=== PATIENT | male | born 1950 | race Caucasian/White ===

== ENCOUNTER 2017-02-27 13:40 | Emergency (ER) | payer OTHER ==
[~2017-02-27] VITALS: Ht 175.3 cm; Wt 87.5 kg
[~2017-02-27 13:40] MED LIST: AMIT10 PO; MOBI7.5T PO; PRIN5TAB PO
[2017-02-27 13:41] VITALS: BP 168/77; PULSE 124; RESP 20; TEMP 97.7; O2SAT 97
[2017-02-27] MEDS ORDERED: MOBI15TA PO (14:05)
[2017-02-27] MEDS ORDERED: HYDR-3535 PO (14:05)
[2017-02-27] MEDS ORDERED: LISI-519 PO (14:05)
[2017-02-27] MEDS ORDERED: CLON0.5T PO (14:05)
--- NOTE | 2017-02-27 14:05 | PD ---
HPI Chief Complaint: Injury Time Seen by Provider: 14:05 Travel History International Travel<30 days: No Contact w/Intl Traveler<30days: No Traveled to known affect area: No History of Present Illness HPI 66-year-old male with history of remote CVA and some left-sided deficit presents to emergency brought in for evaluation left foot pain and swelling. Patient states that he went to get up and his left foot was numb. When he stepped down on it he heard a "pop" and the dorsal her of his foot began to swell. He states there is significant pain in the left foot. Is concerned she may have broken something. He recalls no other injury. He has no other symptoms to report at this time. PFSH Past Medical History Hx Anticoagulant Therapy: No Arthritis: Yes Asthma: No Autoimmune Disease: No Blood Disorders: No Heart Rhythm Problems: Yes Cancer: No Cardiac Catheterization: Yes Cardiovascular Problems: Yes High Cholesterol: Yes Chemotherapy: No Chest Pain: Yes Congestive Heart Failure: No COPD: No Cerebrovascular Accident: Yes Coronary Artery Disease: Yes Diabetes: Yes Diminished Hearing: No Endocrine: Yes GERD: No Glaucoma: No Genitourinary: No Headaches: Yes Hepatitis: No Hiatal Hernia: No Hypertension: Yes Immune Disorder: No Kidney Stones: No Musculoskeletal: Yes ( L SIDED WEAKNESS) Neurologic: No Psychiatric: No Reproductive: No Respiratory: No Migraines: Yes Myocardial Infarction: Yes (STATES ~ 10 YEARS PRIOR) Radiation Therapy: No Renal Failure: No Seizures: No Sickle Cell Disease: No Sleep Apnea: No Thyroid Disease: No Ulcer: No Past Surgical History Abdominal Surgery: No AICD: No Arteriovenous Shunt: No Cardiac Surgery: No Coronary Artery Bypass Graft: No Ear Surgery: No Endocrine Surgery: No Eye Surgery: No Genitourinary Surgery: No Gynecologic Surgery: No Insulin Pump: No Joint Replacement: No Oral Surgery: No Pacemaker: No Thoracic Surgery: No Other Surgery: Yes (VARICOCELE) Social History Alcohol Use: No Tobacco Use: No Substance Use: No Allergies-Medications (Allergen,Severity, Reaction): Coded Allergies: No Known Allergies (Verified , 03/22/14) Reported Meds & Prescriptions Reported Meds & Active Scripts Active Reported Mobic (Meloxicam) 15 Mg Tab 10 Mg PO DAILY Clonazepam 0.5 Mg Tab 0.5 Mg PO BID Lortab (Hydrocodone-Acetaminophen) 10-325 Mg Tab 1 Tab PO Q4H PRN Lisinopril 5 Mg Tab 5 Mg PO DAILY Review of Systems Except as stated in HPI: all other systems reviewed are Neg Physical Exam Narrative GENERAL: Well-nourished, well-developed patient in no acute distress SKIN: Focused skin assessment warm/dry. HEAD: Normocephalic. EYES: No scleral icterus. No injection or drainage. NECK: Supple, trachea midline. No JVD or lymphadenopathy. CARDIOVASCULAR: Tachycardic rate and rhythm. RESPIRATORY: Breath sounds equal bilaterally. No accessory muscle use. GASTROINTESTINAL: Abdomen soft, non-tender, nondistended. MUSCULOSKELETAL: No cyanosis. Mild edema on the dorsal lateral aspect of the left foot. Distal pulses are palpable. Cap refill within normal limits. No obvious deformity.. Data Data Last Documented VS Vital Signs Date Time Temp Pulse Resp B/P Pulse Ox O2 Delivery O2 Flow Rate FiO2 02/27/17 13:41 97.7 124 20 168/77 97 Room Air Orders Foot, Complete (Gpr5cpt) (02/27/17 ) Ketorolac Inj (Toradol Inj) (02/27/17 14:15) Oxycodone-Acetamin 5-325 Mg (Percocet (02/27/17 14:15) Ice/Cold Pack (02/27/17 14:05) Colby Bandage (02/27/17 15:45) Post Op Boot (Shoe) (02/27/17 ) Shoe Cast (02/27/17 ) MDM Medical Decision Making Medical Screen Exam Complete: Yes Emergency Medical Condition: Yes Medical Record Reviewed: Yes Differential Diagnosis Contusion versus fracture versus sprain Narrative Course 66-year-old male presents to the emergency department for evaluation left foot pain. Patient does have dorsal lateral swelling of the left foot. No deformity. Patient is tachycardic initially, treated for pain. Upon reassessment, heart rate has reduced to 98 bpm. X-ray imaging is without acute bony abnormality. Colby wrap bandage and postop shoe are applied. Patient is instructed to follow-up with a upper tier. He agrees to return immediately with any acute worsening of symptoms. Diagnosis Primary Impression: Other sprain of left foot, initial encounter Referrals: [facility] Primary Care Physician Patient Instructions: Foot Sprain (ED), General Instructions Additional Instructions: Ice and elevate to reduce pain and swelling Colby wrap for support Follow-up with a upper tier Follow-up with primary care provider Continue pain medication as already prescribed for pain Return immediately with any acute worsening of symptoms Med/Other Pt SpecificInfo: No Change to Meds Disposition: 01 DISCHARGE HOME Condition: Stable Isabel Bernstein Feb 27, 2017 14:05
[2017-02-27] MEDS ORDERED: oxyCODONE/ACETAMINOPHEN 5 MG/325 MG TAB PO ONE (14:15)
[2017-02-27] MEDS ORDERED: KETOROLAC TROMETHAMINE 60 MG/2 ML (IM) VIAL IM ONE (14:15)
--- NOTE | 2017-02-27 15:02 | RADRPT ---
EXAM DATE/TIME: 02/27/2017 14:25 [facility] COMPARISON: No previous studies available for comparison. INDICATIONS : Pain and swelling after twisting foot and hearing a "pop" sound today. Pain and swelling in tarsal ar ea. MEDICAL HISTORY : None. SURGICAL HISTORY : None. ENCOUNTER: Initial ACUITY: 1 day PAIN SCORE: 7/10 LOCATION: Left Foot FINDINGS: Three view examination of the left foot demonstrates significant soft tissue swelling along the dorsu m and lateral aspect of the midfoot. The bony structures appear intact without evidence of fracture o r significant arthropathy.. The tarsal bones appear intact. The interphalangeal and metatarsophala ngeal joints are intact. The calcaneus is intact. Bony mineralization is normal. CONCLUSION: Soft tissue swelling without evidence of acute fracture or significant arthropathy. Papi Carlson MD on February 27, 2017 at 14:59 Board Certified Radiologist. This report was verified electronically.
== END 2017-02-27 16:15 | disposition home or self-care (01) ==
LOC: NEPE 13:40
DX: S93.692A Other sprain of left foot, initial encounter (principal); R00.0 Tachycardia, unspecified; M13.88 Other specified arthritis, other site; I25.10 Atherosclerotic heart disease of native coronary artery without angina pectoris; E11.9 Type 2 diabetes mellitus without complications; I10 Essential (primary) hypertension; I69.954 Hemiplegia and hemiparesis following unspecified cerebrovascular disease affecting left non-dominant side; W22.8XXA Striking against or struck by other objects, initial encounter; Z79.899 Other long term (current) drug therapy
CPT/HCPCS: 29540; 73630; 96372; 99284; J1885; L3260